=== PATIENT | male | born 2000 ===

== ENCOUNTER 2022-07-26 13:44 | Emergency (ER) | payer OTHER ==
[~2022-07-26] VITALS: Ht 167.6 cm; Wt 68.0 kg
== END 2022-07-26 17:10 | disposition home or self-care (01) ==
LOC: ER 13:44
DX: S01.412A Laceration without foreign body of left cheek and temporomandibular area, initial encounter (principal); W29.3XXA Contact with powered garden and outdoor hand tools and machinery, initial encounter
CPT/HCPCS: 12054; 99282-25